=== PATIENT | female | born 1980 | race Caucasian/White ===

== ENCOUNTER 2017-01-05 22:30 | Inpatient (IN) | payer SELFPAY ==
[~2017-01-05] VITALS: Ht 162.6 cm; Wt 97.5 kg
[2017-01-05] MEDS ORDERED: LACT. RINGERS/OXYTOCIN 20UNITS 1,000 ML IV SCH (23:31)
[2017-01-05] MEDS ORDERED: LACTATED RINGER'S 1,000 ML IV SCH (23:31)
[2017-01-05] MEDS ORDERED: METHYLERGONOVINE MALEATE 0.2 MG/ML AMP IM PRN (23:45)
[2017-01-05] MEDS ORDERED: NALBUPHINE HCL 10 MG/1ml INJECTION IV PRN (23:45)
[2017-01-05] MEDS ORDERED: LIDOCAINE 1% HCL (LOCAL ANESTH.) INJ 20ML MDV IJ ONE (23:45)
[2017-01-05] MEDS ORDERED: PENICILLIN G POT 5MIL/D5 50ML 50 ML IV ONE (23:45)
[2017-01-06] LABS: Urine RBC None Seen /hpf (0 - 4)
[2017-01-06 00:02] LABS: Basophils # (auto) 0 uL; Basophils % (auto) 0.5 % (0.0-2.0); DEFINITIVE VIEW TRANSMISSION; Eosinophils # (auto) 0.1 uL; Eosinophils % (auto) 1.8 % (0.0-7.0); Hemoglobin 11.3 g/dL (12.2-16.2); Lymphocytes % (auto) 27.6 % (10.0-50.0); Mean Corpuscular Hemoglobin 26.8 pg (28.0-32.0); Mean Corpuscular Hgb Conc. 33.3 g/dL (32.0-36.0); Mean Corpuscular Volume 80.6 fL (80.0-100.0); Mean Platelet Volume 9.1 fL (7.4-10.4); Monocytes # (auto) 0.6 uL; Monocytes % (auto) 8.1 % (0.0-12.0); Neutrophils # (auto) 4.6 uL; Platelet Count (auto) 242 10^3/uL (140-450); Red Cell Distribution Width 13.8 % (11.6-16.0); White Blood Cell 7.3 10^3/uL (4.4-10.8)
[2017-01-06 00:19] LABS: INR 0.92 (0.9-1.15); Partial Thromboplastin Time 28.7 sec (22.64-33.71); Prothrombin Time 9.5 sec (9.37-12.3)
[2017-01-06 00:26] LABS: Albumin 2.6 g/dL (3.4-5.0); Potassium 3.5 mmol/L (3.5-5.1)
[2017-01-06 00:27] LABS: Urine Bilirubin Negative (Negative); Urine Blood Negative /uL (Negative); Urine Color Yellow (Yellow); Urine Glucose Normal (Normal); Urine Mucus FEW (None Seen); Urine Nitrite Negative (Negative); Urine Squamous Epithelial Cell MOD /hpf (<5); Urine Urobilinogen Normal (Negative)
[2017-01-06 00:29] LABS: Bilirubin, Total 0.3 mg/dL (0.2-1.0); Total Protein 6.7 g/dL (6.4-8.2)
[2017-01-06 00:29] LABS: Urine Ketone 1+ (Negative)
[2017-01-06] MEDS ORDERED: STERILE WATER 20 ML ONE (04:31)
[2017-01-06] MEDS ORDERED: PENICILLIN G POT 5MILLION UNIT VIAL ONE (04:31)
[2017-01-06] MEDS: PENICILLIN G POTASSIUM 2,500,000 UNITS in D5W 5% 50 ML IV SCH ×2 (04:40→09:11)
[2017-01-06] MEDS ORDERED: PHISODERM TOP SOLN 240ML BTL TOP PRN (05:00)
[2017-01-06] MEDS ORDERED: WITCH HAZEL-GLYCERIN PAD TOP PRN (05:00)
[2017-01-06] MEDS ORDERED: DERMOPLAST 60ML BOTTLE TOP PRN (05:00)
[2017-01-06] MEDS ORDERED: LIDOCAINE 2%HCL (LOCAL ANESTH.) INJ 20ML MDV IJ ONE (05:00)
[2017-01-06] MEDS ORDERED: PROMETHAZINE HCL 25 MG/ML 1ML ONE (08:16)
[2017-01-06] MEDS ORDERED: PROMETHAZINE HCL 25 MG/ML 1ML IV PRN (08:30)
[2017-01-06 15:46] VITALS: BP 109/52
[2017-01-06] MEDS ORDERED: IBUPROFEN 600 MG TAB PO ONE (18:50)
[2017-01-06] MEDS ORDERED: IBUPROFEN 600 MG TAB PO PRN (19:30)
[2017-01-06] MEDS ORDERED: ACETAMINOPHEN 325 MG TAB PO PRN (19:30)
[2017-01-06 20:00] VITALS: BP 110/61
[2017-01-07 00:18] VITALS: BP 123/60
[2017-01-07 04:01] VITALS: BP 111/61
[2017-01-07 07:07] VITALS: BP 101/54
[2017-01-07] MEDS ORDERED: PREN1TAB20 PO (08:17)
[2017-01-07 12:50] VITALS: BP 105/57
== END 2017-01-07 14:05 | disposition home or self-care (01) | DRG 775 ==
LOC: LDRP 22:30
PROVIDERS: ADMIT Specialist; ATTEND Specialist
PROC: 10E0XZZ Delivery of Products of Conception, External Approach (ICD-10-PCS; principal; 2017-01-06)
PROC: 10907ZC Drainage of Amniotic Fluid, Therapeutic from Products of Conception, Via Natural or Artificial Opening (ICD-10-PCS; 2017-01-06)
PROC: 3E033VJ Introduction of Other Hormone into Peripheral Vein, Percutaneous Approach (ICD-10-PCS; 2017-01-06)
DX: O99.824 Streptococcus B carrier state complicating childbirth (principal); O62.3 Precipitate labor; Z37.0 Single live birth; Z90.49 Acquired absence of other specified parts of digestive tract; Z3A.39 39 weeks gestation of pregnancy
CPT/HCPCS: 36415; 51702; 59025; 59409; 80053; 81001; 85025; 85610; 85730; 86850; 86900; 86901; 88307; 96365; 96366; J2540; J2590; J7060